=== PATIENT | female | born 1930 | race Caucasian/White ===

== ENCOUNTER 2017-05-28 18:20 | Inpatient (IN) | payer MEDICARE, OTHER ==
[2017-05-28] MEDS ORDERED: NORMAL SALINE 1000 ML 1,000 ML IV ONE (18:28)
--- NOTE | 2017-05-28 18:30 | ER Document Report ---
ED Medical Screen (RME) - General Chief Complaint: Weakness Stated Complaint: WEAKNESS Time Seen by Provider: 05/28/17 18:28 Notes: Patient presents with approximately 3 days of cough and congestion and weakness. She is brought in today by son due to progressive weakness. She did see her primary care physician several days ago who diagnosed her with a upper respiratory infection and started the patient on Keflex and cough medicine. However she has continued to become weaker and the cough has progressed. She does denies shortness of breath. No previous history of congestive heart failure. TRAVEL OUTSIDE OF THE [place] IN LAST 30 DAYS: No - Related Data Allergies/Adverse Reactions: No Known Allergies Allergy (Verified 05/28/17 18:21) Past Medical History - Past Medical History Cardiac Medical History: Denies: Hx Heart Attack, Hx Hypertension Pulmonary Medical History: Denies: Hx Asthma Neurological Medical History: Reports: Hx Cerebrovascular Accident - 2000. Denies: Hx Seizures Renal/ Medical History: Denies: Hx Peritoneal Dialysis GI Medical History: Denies: Hx Hepatitis, Hx Hiatal Hernia, Hx Ulcer Infectious Medical History: Denies: Hx Hepatitis Past Surgical History: Denies: Hx Mastectomy, Hx Open Heart Surgery, Hx Pacemaker
--- NOTE | 2017-05-28 19:18 | ER Document Report ---
ED General - General Chief Complaint: Weakness Stated Complaint: WEAKNESS Time Seen by Provider: 05/28/17 18:28 Notes: Patient is an 87 year old female that comes to the ED for chief complaint of cough, congestion, weakness, and shortness of breath, worsening for about 3 days. She was so weak before arrival she was carried by her son to the car. She did manage to see her provider this AM, Dr. Amador, and was given Keflex and a cough medication. Patient denies chest pain, abdominal pain, vomiting, diarrhea , or noted fever. PMH of CVA with no deficits, RA on methotrexate, and back surgery. No recent hospital admissions. TRAVEL OUTSIDE OF THE [place] IN LAST 30 DAYS: No - Related Data Allergies/Adverse Reactions: No Known Allergies Allergy (Verified 05/28/17 18:21) Past Medical History - General Information source: Patient - Social History Smoking Status: Never Smoker Frequency of alcohol use: None Drug Abuse: None Lives with: Family Family History: Reviewed & Not Pertinent Patient has suicidal ideation: No Patient has homicidal ideation: No - Past Medical History Cardiac Medical History: Denies: Hx Heart Attack, Hx Hypertension Pulmonary Medical History: Denies: Hx Asthma Neurological Medical History: Reports: Hx Cerebrovascular Accident - 2000. Denies: Hx Seizures Renal/ Medical History: Denies: Hx Peritoneal Dialysis GI Medical History: Denies: Hx Hepatitis, Hx Hiatal Hernia, Hx Ulcer Musculoskeltal Medical History: Reports Other - Rheumatoid arthritis Infectious Medical History: Denies: Hx Hepatitis Past Surgical History: Denies: Hx Mastectomy, Hx Open Heart Surgery, Hx Pacemaker - Immunizations Hx Diphtheria, Pertussis, Tetanus Vaccination: Yes Review of Systems - Review of Systems Constitutional: See HPI EENT: See HPI Cardiovascular: No symptoms reported Respiratory: See HPI Gastrointestinal: No symptoms reported Genitourinary: No symptoms reported Female Genitourinary: No symptoms reported Musculoskeletal: No symptoms reported Skin: No symptoms reported Hematologic/Lymphatic: No symptoms reported Neurological/Psychological: No symptoms reported Physical Exam - Vital signs Vitals: Temp Pulse Resp BP Pulse Ox 99.6 F 103 H 28 H 157/49 H 94 05/28/17 18:34 05/28/17 18:34 05/28/17 18:34 05/28/17 18:34 05/28/17 18:34 Interpretation: Normal - General General appearance: Alert, Other - Mild tachypnea, otherwise she is well- appearing In distress: None - HEENT Head: Normocephalic, Atraumatic Eyes: Normal Pupils: PERRL - Respiratory Respiratory status: Tachypnea - very mild. No: Respiratory distress, Labored Chest status: Nontender Breath sounds: Other - There are some rales and rhonchi in the lower lung gill worse on the left, good breath movements otherwise Chest palpation: Normal - Cardiovascular Rhythm: Regular Heart sounds: Normal auscultation Murmur: Yes - / heard thoughout - Abdominal Inspection: Normal Distension: No distension Bowel sounds: Normal Tenderness: Nontender. No: Tender, Guarding Organomegaly: No organomegaly - Back Back: Normal, Nontender - Extremities General upper extremity: Normal inspection, Nontender, Normal color, Normal ROM , Normal temperature General lower extremity: Normal inspection, Nontender, Normal color, Normal ROM , Normal temperature, Normal weight bearing. No: Edema - Neurological Neuro grossly intact: Yes Cognition: Normal Orientation: AAOx4 [place] Coma Scale Eye Opening: Spontaneous [place] Coma Scale Verbal: Oriented [place] Coma Scale Motor: Obeys Commands [place] Coma Scale Total: 15 Speech: Normal Motor strength normal: LUE, RUE, LLE, RLE Sensory: Normal - Psychological Associated symptoms: Normal affect, Normal mood - Skin Skin Temperature: Warm Skin Moisture: Dry Skin Color: Normal Course - Re-evaluation Re-evalutation: 05/28/17 On my exam patient has borderline tachycardia, mild tachypnea, oxygen saturation of 94% on room air. Some rales/rhonchi in the lower lobes worse on the left. She was placed on oxygen, oxygen saturation increased to 100%, tachypnea resolved. Patient with no complaints on my exam. She is afebrile. She is not hypotensive. Lactic acid is normal. Blood gas does not show acidosis. CBC shows mild leukocytosis at 12.2 with elevation of neutrophils but no bandemia. Chemistries unremarkable. Urine still pending. Chest x-ray consistent with left lower lobe infiltrate which is consistent with examination. Starting on Levaquin, no recent hospital admission. Concern because of patient's weakness, improvement on oxygen, and immunocompromise state on methotrexate. Discussed with Dr. Cummins. Will discuss with Dr. Barton for admission. Discussed with Dr. Barton, patient will be admitted to telemetry for admission. Patient states agreement with this plan. - Vital Signs Vital signs: Temp Pulse Resp BP Pulse Ox 99.6 F 103 H 25 H 143/60 H 100 05/28/17 18:34 05/28/17 18:34 05/28/17 20:30 05/28/17 20:30 05/28/17 20:30 - Laboratory Result Diagrams: 05/28/17 19:15 05/28/17 19:15 Laboratory results interpreted by me: 05/28/17 05/28/17 05/28/17 19:15 19:15 20:22 WBC 12.0 H RBC 3.21 L Hgb 10.8 L Hct 31.9 L MCV 100 H MCH 33.6 H RDW 14.3 H Seg Neutrophils % 85.1 H Lymphocytes % 7.0 L Absolute Neutrophils 10.2 H VBG pH 7.46 H Sodium 133.4 L Chloride 94 L Glucose 125 H AST 39 H Discharge - Discharge Clinical Impression: Cough, Weakness Pneumonia Qualifiers: Pneumonia type: due to unspecified organism Laterality: left Lung location: lower lobe of lung Qualified Code(s): J18.1 - Lobar pneumonia, unspecified organism Condition: Stable Disposition: ADMITTED INPATIENT Admitting Provider: Hospitalist Unit Admitted: Telemetry Referrals: JOSE AMADOR MD [Primary Care Provider] - Follow up as needed
--- NOTE | 2017-05-28 19:34 | RADIOLOGY REPORT (SQ) ---
EXAM DESCRIPTION: CHEST SINGLE VIEW COMPLETED DATE/TIME: 05/28/2017 7:25 pm REASON FOR STUDY: cough/congested COMPARISON: None. EXAM PARAMETERS: NUMBER OF VIEWS: One view. TECHNIQUE: Single frontal radiographic view of the chest acquired. RADIATION DOSE: NA LIMITATIONS: None. FINDINGS: LUNGS AND PLEURA: Patchy airspace densities are identified in the left lung base most cons istent with a patchy pneumonic infiltrate. Remaining lung gill are clear. No pleural effusions ar e identified. No pneumothorax is seen. MEDIASTINUM AND HILAR STRUCTURES: No masses. Contour normal. HEART AND VASCULAR STRUCTURES: Heart normal in size. Normal vasculature. BONES: No acute findings. HARDWARE: None in the chest. OTHER: Orthopedic hardware is identified in the lower thoracic and upper lumbar spine IMPRESSION: Patchy pneumonic infiltrate in the left lung base. TECHNICAL DOCUMENTATION: JOB ID: [id number]
[2017-05-28] MEDS ORDERED: LEVOFLOXACIN 750 MG/D5W RTU 150 ML IV ONE (19:35)
[2017-05-28 19:41] LABS: ABSOLUTE LYMPHOCYTES (AUTO) 0.8 10^3/uL (0.5-4.7); ABSOLUTE MONOCYTES (AUTO) 0.9 10^3/uL (0.1-1.4); ABSOLUTE NEUT (AUTO) 10.2 10^3/uL (1.7-8.2); BASOPHILS % (AUTO) 0.3 % (0-2); EOSINOPHILS % (AUTO) 0.1 % (0-6); HEMATOCRIT 31.9 % (36.0-47.0); HEMOGLOBIN 10.8 g/dL (12.0-15.5); HGB HCT DIFFERENCE 0.5; MEAN CORPUSCULAR HEMOGLOBIN 33.6 pg (27.0-33.4); MEAN CORPUSCULAR HGB CONC 33.7 g/dL (32.0-36.0); MEAN CORPUSCULAR VOLUME 100 fl (80-97); MONOCYTES % (AUTO) 7.5 % (3-13); RED BLOOD COUNT 3.21 10^6/uL (3.72-5.28); RED CELL DISTRIBUTION WIDTH 14.3 % (11.5-14.0); SEGMENTED NEUTROPHILS % (AUTO) 85.1 % (42-78)
[2017-05-28 19:46] LABS: PROTHROMBIN TIME 14.2 SEC (11.4-15.4)
[2017-05-28 19:58] LABS: ALANINE AMINOTRANSFERASE 28 U/L (9-52); ALBUMIN 4.3 g/dL (3.5-5.0); ALKALINE PHOSPHATASE 82 U/L (38-126); ANION GAP 14 (5-19); ASPARTATE AMINO TRANSFERASE 39 U/L (14-36); BILIRUBIN,DIRECT 0.4 mg/dL (0.0-0.4); BILIRUBIN,TOTAL 1.1 mg/dL (0.2-1.3); BLOOD UREA NITROGEN 19 mg/dL (7-20); CARBON DIOXIDE 25 mmol/L (22-30); CHLORIDE 94 mmol/L (98-107); CREATININE RESULT 0.84 mg/dL (0.52-1.25); GLUCOSE 125 mg/dL (75-110); POTASSIUM 3.8 mmol/L (3.6-5.0); SODIUM 133.4 mmol/L (137-145); TOTAL PROTEIN 8.2 g/dL (6.3-8.2)
[2017-05-28 20:36] LABS: VENOUS BLOOD BASE EXCESS 5.3 mmol/L; VENOUS BLOOD HCO3 29.6 mmol/L (20-32); VENOUS BLOOD PCO2 42.2 mmHg (35-63); VENOUS BLOOD PH 7.46 (7.30-7.42)
[2017-05-28 21:51] LABS: APPEARANCE,URINE SLIGHTLY-CLOUDY; BILIRUBIN,URINE NEGATIVE (NEGATIVE); GLUCOSE, URINE NEGATIVE (NEGATIVE); KETONES,URINE NEGATIVE (NEGATIVE); LEUKOCYTE ESTERASE,URINE LARGE (NEGATIVE); NITRITE,URINE NEGATIVE (NEGATIVE); PROTEIN,URINE 100 mg/dL (NEGATIVE); URINE SPECIFIC GRAVITY 1.017
[2017-05-28] MEDS ORDERED: DEXTROSE 40% GEL 15 GM TUBE PO PRN ×2 (21:51)
[2017-05-28] MEDS ORDERED: GLUCAGON,HUMAN RECOMB 1 MG INJ SUBCUT PRN (21:51)
[2017-05-28] MEDS ORDERED: DEXTROSE 50%-WATER 25 GM/50 ML DISP.SYRIN IV PRN ×2 (21:51)
[2017-05-28 22:09] LABS: ADD ON TESTING BLD IN LAB ACKNOWLEDGE
[2017-05-28] MEDS ORDERED: VANCOMYCIN HCL 0 MG in DEXTROSE 5%-WATER 250 ML IV NR (22:15)
[2017-05-28] MEDS ORDERED: PHARMACY COMMUNICATION ORDER MC SCH (22:15)
[2017-05-28] MEDS ORDERED: IPRATROPIUM/ALBUTEROL 0.5-2.5 MG/3 ML AMPUL NEB PRN (22:16)
[2017-05-28] MEDS ORDERED: NORMAL SALINE 1000 ML 1,000 ML IV PRN (22:18)
[2017-05-28] MEDS ORDERED: ACETAMINOPHEN 650 MG SUPP.RECT PR PRN (22:22)
[2017-05-28] MEDS ORDERED: PROMETHAZINE HCL 25 MG SUPP.RECT PR PRN (22:22)
[2017-05-28] MEDS ORDERED: AMPICILLIN SOD/SULBACTAM 3 GM VIAL IV PRN ×2 (22:23→22:30)
[2017-05-28] MEDS ORDERED: AMPICILLIN SODIUM/SULBACTAM NA 3 GM in NORMAL SALINE 100 ML IV ONE (22:30)
--- NOTE | 2017-05-28 22:35 | RADIOLOGY REPORT (SQ) ---
EXAM DESCRIPTION: CT HEAD WITHOUT COMPLETED DATE/TIME: 05/28/2017 10:22 pm REASON FOR STUDY: Hx CVA; right hemiparesis COMPARISON: None. TECHNIQUE: Axial images acquired through the brain without intravenous contrast. Images reviewed wi th bone, brain and subdural windows. Images stored on PACS. All CT scanners at this facility use dose modulation, iterative reconstruction, and/or weight based d osing when appropriate to reduce radiation dose to as low as reasonably achievable (ALARA). [facility]: Dose Right [facility]: CareDose [facility]: Dose Right [facility]: Teradose 4D [facility]: Smart [place] RADIATION DOSE: Up-to-date CT equipment and radiation dose reduction techniques were employed. CTDIv ol: 55.3 mGy. DLP: 996 mGy-cm.mGy. LIMITATIONS: None. FINDINGS: VENTRICLES: Prominent. CEREBRUM: No masses. No hemorrhage. No midline shift. Areas of low density in the white matter mos t likely due to chronic micro-vascular ischemic change. Bilateral lacunar infarcts are identified at the level of the periventricular white matter. No evidence for acute infarction. CEREBELLUM: No masses. No hemorrhage. No alteration of density. No evidence for acute infarction. EXTRAAXIAL SPACES: Age-related involutional change. No fluid collections. No masses. ORBITS AND GLOBE: No intra- or extraconal masses. Normal contour of globe without masses. CALVARIUM: No fracture. PARANASAL SINUSES: Mucosal thickening is identified in the sphenoid sinuses and several of the ethmoi jerrell air cells bilaterally. SOFT TISSUES: No mass or hematoma. OTHER: No other significant finding. IMPRESSION: CHRONIC CHANGES OF ATROPHY AND MICROVASCULAR ISCHEMIA. Old lacunar infarcts at the leve l of the periventricular white matter bilaterally. Sinus disease as noted above. Other findings as noted above TECHNICAL DOCUMENTATION: JOB ID: [id number] Quality ID # [id number]: Final reports with documentation of one or more dose reduction techniques (e.g., Au tomated exposure control, adjustment of the mA and/or kV according to patient size, use of iterative reconstruction technique) 2010 [employer]- All Rights Reserved
--- NOTE | 2017-05-28 22:59 | PDOC H&P ---
History of Present Illness Admission Date/PCP: 05/28/17 22:17 JOSE AMADOR MD Rheumatology Dr. Perez, [place] Patient complains of: Congested cough History of Present Illness: JACINTO WORLEY is a 87 year old female with underlying hypertension, long-term methotrexate dependent rheumatoid arthritis, status post prior stroke in the early which has left her with chronic dysphagia, and chronic right hemiparesis, mild anxiety and depression, without suicidal or homicidal ideation , and with no known underlying chronic pulmonary disease, who presents to the emergency room for evaluation of approximately a 3 day history of slowly progressive congested cough, weakness, and shortness of breath, in particular with much of any exertion. Patient has been discussed with emergency room nurse practitioner who evaluated the patient. History also is provided by son, who is present patient side, with her approval. While patient does speak somewhat slowly, she does seem to provide reasonably accurate information, as corroborated by son. Son went by to see his mother today and found her somewhat confused and weak, to the point that he actually picked her up and carried her to the car. Thought she may have had another stroke. However, once he placed her in the car , patient was more alert and less confused. Patient was observed to choke and sputter, so to speak, while attempting to eat applesauce in the emergency room. Was made n.p.o. at that time. no nausea vomiting, fever or chills, diarrhea or dysuria. No chest or abdominal pain. Son states that since her stroke, along with the right-sided weakness, she has had a "lot" of swallowing problems, in particular over the last year. Patient herself seems to downplay this, and also denies any episodes of "strangling" with her food. She eats and swallows very slowly; son agrees with this. No specific "choking" on her food. According to son, was actually admitted to our facility within the last week or so for pneumonia, and just came home the other day. Dictation via voice recognition software. Laboratory results are listed in [employer] and are reviewed. X-ray summary results are listed below, with full report(s) reviewed. . EKG reviewed. No old EKG available for comparison. Social history/personal habits: . Lives with . Retired. 3 sons. No tobacco use for 34 years. No alcohol or illicit drug use. No known drug allergies. Home medications initially autopopulated into [employer] may not accurately reflect patient's true medications, dosages, and/or frequencies. 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 REVIEW OF SYSTEMS: Constitutional: No fever or chills. Eyes: Wears glasses. ENT: See history and present illness. Partial hearing loss. Pulmonary: See history and present illness. Cardiovascular: No current complaints, including chest pain. Gastrointestinal: No current complaints, including nausea or vomiting. Skin: No current complaints, including rashes. Hematologic: Easy bruising. Neurologic: See history and present illness. Musculoskeletal: See history and present illness. Psychiatric: Mild occasional anxiety and depression. Endocrine: No current complaints, including polyuria. Genitourinary: No current complaints, including dysuria. PHYSICAL EXAMINATION: 5 feet 6 inches tall. 63 kg. BMI 22.4 kg/m. Blood pressure 151/66. 94% saturation on 2 L oxygen per nasal cannula. Respirations are 21 and unlabored. Temperature 99.6. Thin otherwise well-developed elderly female, somewhat frail in appearance. Pleasant awake alert and cooperative. Appears perhaps slightly fatigued. Mildly anxious, without agitation. Smiling. Skin is warm and dry. No grossly obvious evidence of rash in areas of skin examined. No subcutaneous nodules palpated. ENT: Mildly hard of hearing to normal conversation. Tongue midline on protrusion pink and slightly tacky. Eyes: No scleral icterus. Pupils equal and reactive to light at 4 mm. Dolores conjunctivae. Neck is supple and nontender to gentle active range of motion and palpation. Midline trachea. No palpable thyroid nodule mass enlargement or tenderness. Lymphatic: No palpable cervical or clavicular nodes. Neck and lymphatic exams limited by patient body habitus. Psychiatric: Reasonable insight into acute and chronic medical issues. Oriented to time location and why here. Lungs: Auscultation reveals equal breath sounds bilaterally. No use of accessory respiratory muscles. Slightly coarse breath sounds, left base; breath sounds are clear otherwise. Cardiovascular: Heart regular rate and rhythm, without gallop murmur or rub. No carotid or abdominal aortic bruits. There is mild bilateral symmetric slightly pitting lower calf, ankle and pedal edema. Faintly palpable dorsalis pedis pulses. Abdomen:soft slightly distended nontender with positive bowel sounds. Unable to adequately evaluate abdomen for masses or organomegaly due to distention. Extremities: Hands and feet are warm and dry. No calf tenderness to compression. No grossly obvious visual evidence of calf swelling. Gentle manipulation of upper and lower extremities fails to reveal any obvious evidence of injury or instability to involved major joints. Has chronic changes in her hands and fingers typically seen in someone with severe arthritis. Neurologic: Cranial Nerves II through XII are grossly intact. Light touch intact at face, upper and lower extremities. Motor function of major muscle groups upper and lower extremities 5 over 5 and symmetric. Patellar reflexes absent. Absent Babinski. No nystagmus. Speaks somewhat slowly. Past Medical History Cardiac Medical History: Reports: Hypertension Denies: Atrial Fibrillation, Congestive Heart Failure, DVT, Myocardial Infarction, Hyperlipidema, Pulmonary Embolism Pulmonary Medical History: Denies: Asthma, Chronic Obstructive Pulmonary Disease (COPD), Sleep Apnea EENT Medical History: Reports: Eyes - Glasses, Ears - Partial hearing loss, Other - Chronic dysphasia since stroke in early 1999 Neurological Medical History: Reports: Ischemic CVA, Other - Chronic mild right hemiparesthesias since stroke Denies: Hemorrhagic CVA, Seizures Endocrine Medical History: Denies: Diabetes Mellitus Type 1, Diabetes Mellitus Type 2, Hyperthyroidism, Hypothyroidism Renal/ Medical History: Reports: None GI Medical History: Denies: Cirrhosis, Gastroesophageal Reflux Disease, Hepatitis, Hiatal Hernia , Peptic Ulcer Disease Musculoskeltal Medical History: Reports: Arthritis - Rheumatoid; long-term methotrexate dependency Skin Medical History: Reports: None Psychiatric Medical History: Reports: Depression, General Anxiety Disorder Denies: Alcohol Dependency, Substance Abuse, Tobacco Dependency Hematology: Reports: Other - Easy bruising Infectious Medical History: Denies: Clostridium Difficile, Hepatitis B, Hepatitis C, Methicillin- Resistant Staph Aureus Past Surgical History Past Surgical History: Reports: Orthopedic Surgery - Foot surgery Social History Information Source: Patient, Relative - Son, Emergency Med Personnel, [facility] Records Lives with: Spouse/Significant other Smoking Status: Former Smoker Frequency of Alcohol Use: None Drugs: None - Advance Directive Resuscitation Status: Full Code Surrogate healthcare decision maker:: Family History Family History: Reviewed & Not Pertinent Parental Family History Reviewed: Yes - Parents of myocardial infarctions. Children Family History Reviewed: Yes - Uncertain health status of children. Sibling(s) Family History Reviewed.: Yes - Surviving sibling with "multiple" health problems Medication/Allergy Home Medications: Folic Acid [Folvite 1 mg Tablet] 1 mg PO DAILY 05/28/17 Methotrexate Sodium [Methotrexate] 20 mg PO TU@1000 05/28/17 Paroxetine HCl [Paxil 20 mg Tablet] 20 mg PO DAILY 05/28/17 Triamterene/Hydrochlorothiazid [Maxzide 75 mg-50 mg Tablet] 0.5 tab PO DAILY Allergies/Adverse Reactions: No Known Allergies Allergy (Verified 05/28/17 18:21) Physical Exam Vital Signs: Temp Pulse Resp BP Pulse Ox 99.6 F 103 H 27 H 135/58 H 100 05/28/17 18:34 05/28/17 18:34 05/28/17 22:01 05/28/17 22:01 05/28/17 22:01 Results Impressions: Head CT 05/28/17 00:00 IMPRESSION: CHRONIC CHANGES OF ATROPHY AND MICROVASCULAR ISCHEMIA. Old lacunar infarcts at the level of the periventricular white matter bilaterally. Sinus disease as noted above. Other findings as noted above Chest X-Ray 05/28/17 18:29 IMPRESSION: Patchy pneumonic infiltrate in the left lung base. Assessment & Plan - Diagnosis (1) Anemia Qualifiers: Anemia type: unspecified type Qualified Code(s): D64.9 - Anemia, unspecified Is this a current diagnosis for this admission?: YesPlan: Follow-up CBC with differential. No need for transfusion at present time. Stool for occult blood. (3) LLL pneumonia Qualifiers: Pneumonia type: aspiration pneumonia Aspiration pneumonia type: unspecified Qualified Code(s): J69.0 - Pneumonitis due to inhalation of food and vomit Is this a current diagnosis for this admission?: YesPlan: Suspected aspiration pneumonia. Patient will be admitted under pneumonia protocol. Incentive spirometry twice a day. As needed DuoNeb's. Antibiotics will consist of Unasyn and vancomycin, given both suspected aspiration, and patient's immunosuppressed state due to chronic methotrexate use. Pharmacy to assist with dosing.. Patient is a full code. I have strongly encouraged patient not to get out of bed without notifying staff , to avoid a fall with injury. Knee high SCDs for DVT prophylaxis, along with subcutaneous Lovenox. Impression and plans were discussed with patient and son, both of whom concur. Son understands confusion may worsen while she is in the hospital. Time spent in evaluation and management of patient: 75 minutes. (4) UTI (urinary tract infection) Qualifiers: Urinary tract infection type: site unspecified Is this a current diagnosis for this admission?: YesPlan: Blood and urine cultures. (5) Dysphagia as late effect of cerebrovascular accident (CVA) Is this a current diagnosis for this admission?: YesPlan: N.p.o. Speech therapy consult. Patient and son both aware. (6) Methotrexate, equipment operator intermodal yard, current use Is this a current diagnosis for this admission?: YesPlan: We will obviously hold, given her underlying infections. (7) Aspiration into airway Qualifiers: Encounter type: initial encounter Qualified Code(s): T17.908A - Unspecified foreign body in respiratory tract, part unspecified causing other injury, initial encounter Is this a current diagnosis for this admission?: Yes (8) Rheumatoid arthritis Qualifiers: Rheumatoid arthritis location: unspecified site Rheumatoid factor presence: unspecified presence Qualified Code(s): M06.9 - Rheumatoid arthritis, unspecified Is this a current diagnosis for this admission?: YesPlan: As needed pain medications. - Time Time Spent: Greater than 70 Minutes Medications reviewed and adjusted accordingly: Yes Anticipated discharge: Home Within: Other - Inpatient Certification Based on my medical assessment, after consideration of the patient's comorbidities, presenting symptoms, or acuity I expect that the services needed warrant INPATIENT care.: Yes I certify that my determination is in accordance with my understanding of Medicare's requirements for reasonable and necessary INPATIENT services [42 CFR 412.3e].: Yes Medical Necessity: Significant Comorbidiites Make Outpatient Treatment Too Risky , Need Close Monitoring Due to Risk of Patient Decompensation, Need For IV Fluids, Need for IV Antibiotics, Risk of Complication if Not Cared For in Hospital Post Hospital Care: D/C or Transfer Summary
[2017-05-28] MEDS ORDERED: VANCOMYCIN HCL INJ 1000 MG VIAL IV PRN (23:30)
[2017-05-28] MEDS ORDERED: VANCOMYCIN HCL 1,000 MG in DEXTROSE 5%-WATER 250 ML IV ONE (23:30)
[2017-05-29] MEDS ORDERED: VANCOMYCIN HCL INJ 1000 MG VIAL ONE (00:51)
[2017-05-29] MEDS ORDERED: AMPICILLIN SODIUM/SULBACTAM NA 3 GM in NORMAL SALINE 100 ML IV SCH (03:00)
[2017-05-29] MEDS: AMPICILLIN SODIUM/SULBACTAM NA 3 GM in NORMAL SALINE 100 ML IV SCH ×3 (05:03→19:27)
[2017-05-29 05:46] LABS: ABSOLUTE LYMPHOCYTES (AUTO) 0.8 10^3/uL (0.5-4.7); ABSOLUTE MONOCYTES (AUTO) 0.9 10^3/uL (0.1-1.4); ABSOLUTE NEUT (AUTO) 8.6 10^3/uL (1.7-8.2); BASOPHILS % (AUTO) 0.3 % (0-2); EOSINOPHILS % (AUTO) 0.1 % (0-6); HEMOGLOBIN 9.7 g/dL (12.0-15.5); HGB HCT DIFFERENCE 1.1; MEAN CORPUSCULAR HEMOGLOBIN 34.5 pg (27.0-33.4); MEAN CORPUSCULAR HGB CONC 34.7 g/dL (32.0-36.0); MEAN CORPUSCULAR VOLUME 99 fl (80-97); MONOCYTES % (AUTO) 8.6 % (3-13); RED BLOOD COUNT 2.81 10^6/uL (3.72-5.28); RED CELL DISTRIBUTION WIDTH 14.5 % (11.5-14.0); WHITE BLOOD COUNT 10.3 10^3/uL (4.0-10.5)
[2017-05-29] MEDS ORDERED: AMPICILLIN SOD/SULBACTAM 3 GM VIAL IV PRN (06:00)
[2017-05-29 06:14] LABS: ALANINE AMINOTRANSFERASE 26 U/L (9-52); ALBUMIN 3.2 g/dL (3.5-5.0); ALKALINE PHOSPHATASE 64 U/L (38-126); ANION GAP 9 (5-19); ASPARTATE AMINO TRANSFERASE 29 U/L (14-36); BILIRUBIN,DIRECT 0.4 mg/dL (0.0-0.4); BILIRUBIN,TOTAL 1.2 mg/dL (0.2-1.3); BLOOD UREA NITROGEN 12 mg/dL (7-20); CALCIUM 7.9 mg/dL (8.4-10.2); CARBON DIOXIDE 25 mmol/L (22-30); CHLORIDE 101 mmol/L (98-107); CREATININE RESULT 0.65 mg/dL (0.52-1.25); GLUCOSE 112 mg/dL (75-110); POTASSIUM 3.6 mmol/L (3.6-5.0); SODIUM 135.1 mmol/L (137-145); TOTAL PROTEIN 6.5 g/dL (6.3-8.2)
--- NOTE | 2017-05-29 09:54 | ST Inp Modified Barium Swallow ---
Medical Diagnosis - Medical Diagnoses Medical Diagnosis Description & ICD-10 Code(s): pneumonia ST Inpatient [facility] [place] - General Date: 05/29/17 - History History Obtained From: Other - EMR -: Medical - Patient with history of prior CVA with chronic swallowing difficulties. Currently exhibiting some possible worsening swallowing per family report. PMH: HTN, prior CVA with right sided weakness, arthritis, anxiety , depression Medications: Medications Reviewed Allergies: No known allergies - Subjective Current Nutritional Means: NPO Current PO Diet: N/A (NPO) Current Symptoms: Coughing, other - history of dysphagia Pain: Patient reports, 0/5 - Objective Assessment: Upright, Left Lateral - Food Trials Food Trials Used: Thin liquids, Pureed, Soft solids The Patient: fed by ST, via cup, via spoon - Assessment Labial Function: Within Normal Limits Lingual Function: Within Normal Limits Dentition: Partial Velo-Pharyngeal Function: Unremarkable Laryngeal Function: Weak Cough - Pharyngeal Stage Initiation of Pharyngeal Stage: Delayed Reflex Delay Time (seconds): 2 Decreased Laryngeal Elevation: No Reduced Velo-Pharyngeal Closure: no Reduced Pressure Generation: Yes Reduced Tongue Base Retraction: No Pre-Swallowing Pooling in Valleculae: Moderate - with pureed texture Multiple Swallows With: Cleared w/ Liquid Assist Post Swallow Residuals in Valleculae: Mild Post Swallow Residuals in Pyriforms: Moderate Post Swallow Residuals: throughout pharynx Pahryngeal Stage Comments: Pharyngeal residue noted on puree texture, with mild residue for liquid trials. Residue able to clear with liquid wash, or with multiple swallows. - Impression/Summary Laryngeal Penetration: Yes, Flash, during swallow Tracheal Aspiration: no Effective Compensatory Strategies: hard swallow Ineffective Compensatory Strategies: throat clear & reswallow Patient Presents With: Oral-Pharyngeal dysph., Mild-Moderate Risk of Aspiration: Mild Risk of Nutritional Compromise: Mild Risk Due To: reduced pharyngeal constriction for swallow, resulting in residue post swallow. Able to clear with second swallow or sip of liquid. Tongue pumping seen with swallow on command from therapist. - Recommendations Solid Diet Recommendations: Ground Meat Liquid Diet Recommendations: Thin Strict Aspitarion Precautions: Yes Dysphagia Therapy with FLAT BREAKDOWN PROCESSOR: No - due to chronic nature of swallowing difficulties Recommended Techniques: Fully Upright During Meal, Small Bites and Sips, Alternate Bites/Sips Supervision: requires assistance - Time Total Time: 20 Total Timed Minutes: 20
--- NOTE | 2017-05-29 10:57 | RADIOLOGY REPORT (SQ) ---
EXAM DESCRIPTION: JOHNIE SWALLOW COMPLETED DATE/TIME: 05/29/2017 8:51 am REASON FOR STUDY: suspect aspiration COMPARISON: None. TECHNIQUE: Videofluoroscopic swallowing examination was performed in conjunction with speech patholo gy. Videofluoroscopic imaging was obtained and reviewed and these are the findings: RADIATION DOSE: Fluoro time 2.42 minutes 1 images saved to PACS. LIMITATIONS: None FINDINGS: The patient was brought into the fluoro room and placed upright on a modified barium swall ow chair. The patient was then given multiple consistencies mixed with barium to swallow under live fluoroscopic video guidance. According to the Speech Pathologist there was a single episode of laryn geal penetration without aspiration seen with thin barium. Pureed and mixed consistencies were swall owed without incident IMPRESSION: SINGLE EPISODE OF LARYNGEAL PENETRATION WITH THIN BARIUM. NO ASPIRATION IDENTIFIED.PLEA SE SEE SPEECH PATHOLOGIST REPORT FOR OTHER FINDINGS AND RECOMMENDATIONS. COMMENT: NONE Quality ID [id number]: Final reports for procedures using fluoroscopy that document radiation exposure myesha shelley, or exposure time and number of fluorographic images (if radiation exposure indices are not avail able) TECHNICAL DOCUMENTATION: JOB ID: [id number] [employer]- All Rights Reserved
[2017-05-29] MEDS: ENOXAPARIN SODIUM INJ 40 MG/0.4 ML DISP.SYRIN SUBCUT SCH (14:37)
--- NOTE | 2017-05-29 15:37 | Physician Advisory Note ---
Physician Advisor ProgressNote .: Pursuant to the plan for [facility], I have reviewed the medical record for this patient. 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 Please consider documentin. Principal Dx: please list principal dx requiring adm as Dx #1 in each note. 2. "Acute hyponatemia, suspect due to ___" Thanks! CK
--- NOTE | 2017-05-29 15:49 | PROGRESS NOTE E ---
Progress Note NAME: JACINTO WORLEY : 1930 AGE: 87Y DATE: ROOM: 403 SUBJECTIVE: The patient was seen twice today on rounds. The patient's symptoms apparently have improved in comparison to yesterday. The patient herself has some dementia. She is unable to articulate the specifics of things, but states that she is feeling better. The patient has denied any nausea, vomiting, diarrhea. No shortness of breath, dizziness, chest pain. No fever or chills. The patient has been afebrile since midnight. Blood pressures have been in a good range. The patient does not voice any other concerns at this time. Discussed the case with both the patient's and her son with the patient. The patient has elected for a natural , stating that she does not want to be put on machines. This was discussed with the family who are in agreement with this plan. The patient did have a swallow evaluation today. I have discussed the details and findings of this and they are aware the patient may have issues with recurrent aspiration, but do favor quality of life. No other concerns are voiced at this time. REVIEW OF SYSTEMS: Rest of review of systems is negative. MEDICATIONS: Reviewed today. OBJECTIVE: GENERAL: The patient is an 87-year-old female who is awake, alert and oriented to person, place, time and situation. She is delayed. Does not appear to be in acute distress. VITAL SIGNS: Are as follows: Temperature is 98.6, pulse 84, respirations 18, blood pressure 120/52, oxygen saturation 97% on 2 L nasal cannula. SKIN: Warm and dry. No rash. Not diaphoretic. HEENT: Pupils equal, round, reactive to light and accommodation. Conjunctiva pink. No JVD. CARDIOVASCULAR SYSTEM: Heart is regular. There is no murmur or rub. CHEST: Rhonchorous breath sounds are noted in the left lung. ABDOMEN: Soft, nontender, and nondistended. BACK: There is no CVA tenderness or sacral edema. EXTREMITIES: No clubbing, cyanosis, edema. PSYCHIATRIC: Appropriate affect. Pleasant mood. DIAGNOSTICS: Lab values are as follows: Hematology obtained on 05/29/2017: WBC is 10.3, hemoglobin is 7.7, hematocrit is 28.0, platelet count is 192,000. Chemistry obtained on 05/29/2017: Sodium is 135, potassium, chloride is 101, carbon dioxide 26, BUN 12, creatinine is 1.65, glucose 112. Calcium is 7.9. Bilirubin 1.2. AST 29, ALT 26. Alkaline phosphatase 64. Total protein 6.5. Albumin 3.2. Urine culture obtained on 05/28/2017 reveals no growth. Sputum culture obtained on 05/29/2017 is pending. IMPRESSION AND PLAN: 1. PNEUMONIA. Most likely aspiration pneumonia. We will continue antibiotic coverage. We will discontinue vancomycin. We will continue dietary recommendations by Speech and follow. 2. HYPERTENSION. Blood pressures have been in a good range. We will continue to hold the patient's blood pressure medications to ensure we have something to work with. 3. ACUTE HYPOXEMIC RESPIRATORY FAILURE SECONDARY TO THE PATIENT'S PNEUMONIA. The patient is no longer tachypneic. Overall much improved. 4. EARLY SEPSIS. The patient's symptoms overall have improved tremendously. We will continue to monitor. 5. DEMENTIA. The patient is currently at her baseline. 6. RHEUMATOID ARTHRITIS. We will continue supportive therapy. DISPOSITION: The patient is a DO NOT RESUSCITATE/DO NOT INTUBATE. Pending patient's symptomatology and diagnostic findings, we will re-evaluate in the a.m. Time spent on this followup including assessment, plan, physical examination, patient education and family meetings 45 minutes. DICTATING PHYSICIAN: RACHEL ELY NP [id number] PHY#: [id number] ID: [id number] JOB#: [id number] ACCT: [id number] cc: > [facility]
--- NOTE | 2017-05-29 16:22 | EKG REPORT ---
SEVERITY:- ABNORMAL ECG - SINUS TACHYCARDIA LEFT ATRIAL ABNORMALITY BORDERLINE T ABNORMALITIES, INFERIOR LEADS : Confirmed by: Anastasia Chew MD 29-May-2017 16:22:12
[2017-05-29] MEDS ORDERED: VANCOMYCIN HCL 1,000 MG in DEXTROSE 5%-WATER 250 ML IV SCH (22:00)
[2017-05-30] MEDS: AMPICILLIN SODIUM/SULBACTAM NA 3 GM in NORMAL SALINE 100 ML IV SCH ×5 (00:26→23:10)
[2017-05-30] MEDS: ENOXAPARIN SODIUM INJ 40 MG/0.4 ML DISP.SYRIN SUBCUT SCH (09:48)
[2017-05-30] MEDS: FOLIC ACID 1 MG TABLET PO SCH (09:48)
[2017-05-30] MEDS: PAROXETINE HCL 20 MG TABLET PO SCH (09:48)
[2017-05-30] MEDS ORDERED: GUAIFENESIN 600 MG TABLET.SA PO ONE (11:00)
--- NOTE | 2017-05-30 11:07 | PROGRESS NOTE E ---
Progress Note NAME: JACINTO WORLEY : 1930 AGE: 87Y DATE: 05/30/2017 ROOM: 403 SUBJECTIVE: The patient is out of bed to the bedside chair. The patient states that she does feel a little better than when she came in. The patient has had a very strong cough, but has been unable to produce any sputum. The patient does express a desire to go home; however, she still is quite dyspneic. The patient has been afebrile. Her blood pressures have been in a good range, and the patient does not voice any other concerns at this time. Will discuss the case with family as requested. REVIEW OF SYSTEMS: Rest of review of systems negative. MEDICATIONS: Medications have been reviewed. OBJECTIVE: GENERAL: The patient is an 87-year-old female who is awake, alert. She is oriented to person, place, time, and situation. She is a little delayed, does not appear to be in any acute distress. VITAL SIGNS: Temperature is 98.7, pulse 82, respirations 17, blood pressure is 130/55, oxygen saturation 98% on 2 L nasal cannula. SKIN: Warm and dry. No rash. She is not diaphoretic. HEENT: Pupils equal, round, and reactive to light and accommodation. Conjunctivae pink. There is no JVP. CARDIOVASCULAR SYSTEM: Heart is regular. There is no murmur or rub. CHEST: The patient does have rhonchorous breath sounds noted in left lung field, but symmetrical, not labored. ABDOMEN: Soft, nontender, nondistended. Bowel sounds are present. No palpable organomegaly. BACK: No CVA tenderness or sacral edema. EXTREMITIES: No clubbing, cyanosis, edema. PSYCHIATRIC: Appropriate affect, pleasant mood. She is demented. DIAGNOSTICS: Lab values are as follows: Hematology obtained on 05/29/2017: WBCs are 10.3, hemoglobin is 9.7, hematocrit is 28.0, platelet count is 192,000. Chemistry obtained on 05/29/2017: Sodium is 135, potassium 3.6, chloride is 101, carbon dioxide 25, BUN 12, creatinine is 0.65, glucose 112, calcium is 7.9, bilirubin is 1.2. AST 29, ALT is 26, Alk phos 64, total protein 6.5, albumin 3.2. IMPRESSION AND PLAN: 1. ASPIRATION PNEUMONIA. The patient has done well with her dietary changes. Discussed this with the family. Do appreciate speech recommendations. White count has improved. Will repeat chest x-ray in the a.m. and follow. Will add Mucinex given the patient is unable to produce sputum. 2. HYPERTENSION. Blood pressure has been in a good range. Will continue her home medications. 3. ACUTE HYPOXEMIC RESPIRATORY FAILURE. This is secondary to pneumonia. The patient is no longer tachypneic, overall improved. 4. EARLY SEPSIS. Overall, the symptoms have improved tremendously. Will continue to monitor. 5. DEMENTIA. The patient is at her current baseline. 6. RHEUMATOID ARTHRITIS. Will continue supportive therapies. DISPOSITION: The patient is a DNR/DNI. Pending patient's symptomatology and diagnostic findings, will re-evaluate in the a.m. for discharge. Time spent on this followup including assessment, plan, physical examination, patient education, and family meeting is 40 minutes. DICTATING PHYSICIAN: RACHEL ELY NP [id number] PHY#: [id number] ID: [id number] JOB#: [id number] ACCT: [id number] cc: >
[2017-05-30] MEDS: GUAIFENESIN 600 MG TABLET.SA PO SCH (21:41)
[2017-05-31] MEDS: AMPICILLIN SODIUM/SULBACTAM NA 3 GM in NORMAL SALINE 100 ML IV SCH ×2 (05:11→15:04)
[2017-05-31 05:22] LABS: HEMATOCRIT 29.4 % (36.0-47.0); HGB HCT DIFFERENCE 0.6; MEAN CORPUSCULAR HEMOGLOBIN 33.9 pg (27.0-33.4); MEAN CORPUSCULAR HGB CONC 33.9 g/dL (32.0-36.0); MEAN CORPUSCULAR VOLUME 100 fl (80-97); RED BLOOD COUNT 2.94 10^6/uL (3.72-5.28); RED CELL DISTRIBUTION WIDTH 14.8 % (11.5-14.0); WHITE BLOOD COUNT 8.8 10^3/uL (4.0-10.5)
[2017-05-31 05:41] LABS: ANION GAP 10 (5-19); BLOOD UREA NITROGEN 8 mg/dL (7-20); CALCIUM 7.9 mg/dL (8.4-10.2); CARBON DIOXIDE 26 mmol/L (22-30); CHLORIDE 100 mmol/L (98-107); CREATININE RESULT 0.46 mg/dL (0.52-1.25); GLUCOSE 110 mg/dL (75-110); MAGNESIUM 1.8 mg/dL (1.6-2.3); POTASSIUM 3.3 mmol/L (3.6-5.0); SODIUM 135.9 mmol/L (137-145)
[2017-05-31] MEDS ORDERED: POTASSIUM CHLORIDE 20 MEQ/15 ML UDCUP PO ONE (08:00)
--- NOTE | 2017-05-31 08:26 | RADIOLOGY REPORT (SQ) ---
EXAM DESCRIPTION: CHEST PA/LAT COMPLETED DATE/TIME: 05/31/2017 7:58 am REASON FOR STUDY: FU PNA COMPARISON: 05/28/2017. EXAM PARAMETERS: NUMBER OF VIEWS: two views TECHNIQUE: Digital Frontal and Lateral radiographic views of the chest acquired. RADIATION DOSE: NA LIMITATIONS: none FINDINGS: LUNGS AND PLEURA: Diffuse interstitial prominence. Faint basilar densities, left greater than right, unchanged. No large pleural effusion. No pneumothorax. MEDIASTINUM AND HILAR STRUCTURES: No masses or contour abnormalities. HEART AND VASCULAR STRUCTURES: Heart normal size. No evidence for failure. BONES: No acute findings. HARDWARE: Hardware in the spine. OTHER: No other significant finding. IMPRESSION: PROBABLE DIFFUSE CHRONIC INTERSTITIAL SCARRING. FAINT BASILAR DENSITIES, LEFT GREATER T PRESSLEY RIGHT, MAY BE DUE TO SCARRING, ATELECTASIS, OR PNEUMONIA. NO CHANGE. TECHNICAL DOCUMENTATION: JOB ID: [id number] [employer]- All Rights Reserved
[2017-05-31] MEDS: FOLIC ACID 1 MG TABLET PO SCH (10:18)
[2017-05-31] MEDS: GUAIFENESIN 600 MG TABLET.SA PO SCH (10:18)
[2017-05-31] MEDS: ENOXAPARIN SODIUM INJ 40 MG/0.4 ML DISP.SYRIN SUBCUT SCH (10:19)
[2017-05-31] MEDS: PAROXETINE HCL 20 MG TABLET PO SCH (10:20)
[2017-05-31 15:45] VITALS: BP 145/64
--- NOTE | 2017-06-01 12:13 | DISCHARGE SUMMARY E ---
Discharge Summary NAME: JACINTO WORLEY : 1930 AGE: 87Y ADMITTED: 05/28/2017 DISCHARGED: 05/31/2017 CODE STATUS: DO NOT RESUSCITATE, DO NOT INTUBATE with PORTABLE DNR. PRIMARY CARE PROVIDER: Dr. Majano DISCHARGE DIAGNOSES: 1. Aspiration pneumonia. 2. Hypertension. 3. Acute hypoxemic respiratory failure secondary to #1. 4. Early sepsis secondary to #1. 5. Vascular dementia. 6. Rheumatoid arthritis. 7. Cerebrovascular disease status post CVA. 8. Hypovolemic hyponatremia which has improved, present on admission. DISCHARGE MEDICATIONS: 1. Augmentin 875/125 one tablet p.o. every 12 hours, #14 tablets with 0 refills. 2. Folic acid 1 mg p.o. daily. 3. Methotrexate 20 mg p.o. on Saturday. 4. Paxil 20 mg p.o. daily. DIET: As tolerated with mechanical soft ground meats, regular liquids. ACTIVITY: As per home health physical therapy standards. DIAGNOSTICS: 1. Laboratory values are as follows: a. Hematology obtained on 05/31/2017: WBC 8.8, hemoglobin 10.0, hematocrit 24.4, platelet count 231,000. b. Coagulation obtained on 05/28/2017: PT 14.2, INR 1.03. c. Venous blood gas obtained on 05/28/2017 with pH 7.46, pCO2 of 42.2, bicarb 29.3. d. Chemistry obtained on 05/29/2017: Sodium 135, potassium 3.6, chloride 101, carbon dioxide 25, BUN 12, creatinine 0.65, glucose 112, lactic acid 1.6, calcium 7.9, magnesium 1.8, bilirubin 1.2, direct bilirubin 0.4, AST 29, ALT 26, alkaline phosphatase 64, total protein 6.5, albumin 3.2. TSH 0.76. e. Urinalysis obtained on 05/29/2017: Color yellow, appearance slightly cloudy, pH 6.0, specific gravity 1.017, protein 100, glucose negative, ketones negative, occult blood negative, nitrite negative, bilirubin negative, urobilinogen 0.0, leukocyte esterase large, WBCs 15, RBCs 2, bacteria trace, epithelial squamous cells 3, mucus rare, ascorbic acid negative. f. Other body source obtained on 05/31/2017: Stool for occult blood negative. g. Microbiology: Blood cultures obtained on 05/29/2017 revealed no growth. 2. Head CT obtained on 05/28/2017 reveals chronic changes of atrophy and microvascular ischemia, old lacunar infarcts at the level of the periventricular white matter bilaterally. 3. Chest x-ray obtained on 05/28/2017 reveals patchy pneumonic infiltrate of the left lung base. 4. Modified barium swallow obtained on 05/29/2017 reveals a single episode of laryngeal penetration with thin barium. No aspiration identified. 5. Chest x-ray obtained on 05/31/2017 reveals probable diffuse chronic interstitial scarring, faint bibasilar densities left greater than right, may be due to scarring, atelectasis, or pneumonia, otherwise no other change. 6. EKG obtained on 05/28/2017 reveals sinus tachycardia with left atrial abnormality. HISTORY OF PRESENT ILLNESS: The patient is an 87-year-old female with a past medical history of rheumatoid arthritis as well as CVA. The patient presented to the emergency department with a chief complaint of a congestive cough. The patient noted a 3-day history of slowly progressive congestive cough, weakness, shortness of breath especially with exertion. The patient was seen earlier that day by the son, who found the patient to be confused and weak to the point that he actually picked her up out of the chair and carried her to the car and thought she may have had possibly another stroke. Once placed in the car, the patient appeared alert and less confused. The patient was observed to choke and sputter while she was attempting to eat applesauce in the emergency department, so it was felt that the patient may actually have aspirated. The patient has stated that since the patient's stroke along with the right-sided weakness, she had a lot of swallowing problems particularly over the past year. The patient was found to have evidence of pneumonia on imaging and was referred to the hospitalist for admission and management. HOSPITAL COURSE: The patient was admitted to continuous telemetry unit. The patient's white count normalized with starting antibiotic therapy. The patient was covered for aspiration pneumonia. The patient underwent modified swallow evaluation and speech therapy felt the patient was a high aspiration risk; however, that the patient did need mechanical meats and was okay for thin liquids for now. The patient just needed close observation and verbal cues with meals. The patient's risk of aspiration was discussed with the patient and the family. They are aware that the patient's aspiration issues are most likely due to her cerebrovascular disease and that she have recurrent bouts of this, which they understand. The patient's symptoms overall much improved. The patient did well with subsequent meals with mechanical meats. The patient had been afebrile for greater than 48 hours which the patient does run a low-grade temperature with her rheumatoid arthritis. The patient's mentation became at baseline. The patient was seen by therapies and home health with PT and speech therapy have been ordered. The patient has been cleared for discharge. PHYSICAL EXAMINATION: GENERAL: On examination, the patient is a frail, chronically ill-appearing 87-year-old female who is awake, alert, she is oriented to person and place, but not fully oriented to situation, a little delayed. VITAL SIGNS: As follows: Temperature 99.2, pulse 87, respirations 16, blood pressure 138/69, oxygen saturation 93% on room air. SKIN: Warm and dry. No rash. Not diaphoretic. HEENT: Pupils are equal, round and reactive to light and accommodation. Conjunctivae are pink. There is no JVD. CARDIOVASCULAR SYSTEM: Heart is regular. There is no murmur or rub. CHEST: Symmetrical and unlabored. Faint rhonchorous sounds noted in left lung field, but improved in comparison. ABDOMEN: Soft, nontender, nondistended. BACK: No CVA tenderness or sacral edema. EXTREMITIES: No clubbing, cyanosis, or edema. Chronic changes of rheumatoid arthritis are noted throughout physical examination. PSYCHIATRIC: Very pleasant. DISCHARGE PLANNIN. The patient will be followed by home health services with multiple therapy supports. 2. The patient is advised to follow up with her primary care provider as needed. TIME SPENT: Time spent on this discharge including assessment, plan, physical examination, patient education and extensive family members was 40 minute. DICTATING PHYSICIAN: RACHEL ELY NP [id number] PHY#: [id number] ID: [id number] JOB#: [id number] ACCT: [id number] cc:LEI DUNN M.D. RACHEL ELY NP >
== END 2017-05-31 16:42 | disposition home health service (06) | DRG 871 ==
LOC: ER 18:20 → UNDOADMIN 20:59 → EH 20:59 → 4N 23:26
PROVIDERS: ADMIT Family Medicine; ATTEND Family Medicine
PROC: 3E0F73Z Introduction of Anti-inflammatory into Respiratory Tract, Via Natural or Artificial Opening (ICD-10-PCS; principal; 2017-05-29)
DX: A41.9 Sepsis, unspecified organism (principal); J69.0 Pneumonitis due to inhalation of food and vomit; J96.01 Acute respiratory failure with hypoxia; I69.851 Hemiplegia and hemiparesis following other cerebrovascular disease affecting right dominant side; E87.1 Hypo-osmolality and hyponatremia; N39.0 Urinary tract infection, site not specified; I10 Essential (primary) hypertension; R65.20 Severe sepsis without septic shock; F01.50 Vascular dementia, unspecified severity, without behavioral disturbance, psychotic disturbance, mood disturbance, and anxiety; M06.9 Rheumatoid arthritis, unspecified; I69.891 Dysphagia following other cerebrovascular disease; R00.0 Tachycardia, unspecified; D64.9 Anemia, unspecified; T17.908A Unspecified foreign body in respiratory tract, part unspecified causing other injury, initial encounter; F41.1 Generalized anxiety disorder; Z79.1 Long term (current) use of non-steroidal anti-inflammatories (NSAID); Z79.899 Other long term (current) drug therapy; Z87.891 Personal history of nicotine dependence; Z66 Do not resuscitate; Z82.49 Family history of ischemic heart disease and other diseases of the circulatory system
CPT/HCPCS: 36415; 70450; 71010; 71020; 74230; 80048; 80053; 81001; 82272; 82803; 82962; 83605; 83735; 84443; 85025; 85027; 85610; 87040; 87070; 87086; 87205; 93005; 93010; 94640; 94667; 94668; 94799; 96365; 99285; G8978-GP; G8979-GP; J0295; J1650; J1956; J3370; J3490; J7030; J7620

== ENCOUNTER → 2018-03-25 | Outpatient (CLI) | payer MEDICARE, OTHER ==
[2018-03-25 16:37] LABS: ABSOLUTE BASOPHILS # (AUTO) 0.1 10^3/uL (0.0-0.2); ABSOLUTE EOSINOPHILS # (AUTO) 0.1 10^3/uL (0.0-0.6); ABSOLUTE LYMPHOCYTES (AUTO) 1.4 10^3/uL (0.5-4.7); ABSOLUTE MONOCYTES (AUTO) 0.7 10^3/uL (0.1-1.4); ABSOLUTE NEUT (AUTO) 3.3 10^3/uL (1.7-8.2); BASOPHILS % (AUTO) 1.3 % (0-2); EOSINOPHILS % (AUTO) 2.5 % (0-6); HEMATOCRIT 28.3 % (36.0-47.0); HEMOGLOBIN 9.2 g/dL (12.0-15.5); LYMPHOCYTES % (AUTO) 25.2 % (13-45); MEAN CORPUSCULAR HEMOGLOBIN 27.1 pg (27.0-33.4); MEAN CORPUSCULAR HGB CONC 32.5 g/dL (32.0-36.0); MEAN CORPUSCULAR VOLUME 83 fl (80-97); MONOCYTES % (AUTO) 12.9 % (3-13); PLATELET COUNT 294 10^3/uL (150-450); RED BLOOD COUNT 3.39 10^6/uL (3.72-5.28); SEGMENTED NEUTROPHILS % (AUTO) 58.1 % (42-78); TOTAL CELLS COUNTED % (AUTO) 100 %; WHITE BLOOD COUNT 5.6 10^3/uL (4.0-10.5)
[2018-03-25 16:56] LABS: ALANINE AMINOTRANSFERASE 34 U/L (9-52); ALBUMIN 3.8 g/dL (3.5-5.0); ALKALINE PHOSPHATASE 107 U/L (38-126); ANION GAP 13 (5-19); ASPARTATE AMINO TRANSFERASE 56 U/L (14-36); BILIRUBIN,DIRECT 0.3 mg/dL (0.0-0.4); BILIRUBIN,TOTAL 0.4 mg/dL (0.2-1.3); BLOOD UREA NITROGEN 14 mg/dL (7-20); CALCIUM 9.1 mg/dL (8.4-10.2); CARBON DIOXIDE 27 mmol/L (22-30); CHLORIDE 103 mmol/L (98-107); GLUCOSE 90 mg/dL (75-110); POTASSIUM 3.6 mmol/L (3.6-5.0); SODIUM 142.6 mmol/L (137-145); TOTAL PROTEIN 7.2 g/dL (6.3-8.2)
== END ==
LOC: OD 15:03
PROVIDERS: ATTEND Family Medicine
DX: M06.9 Rheumatoid arthritis, unspecified (principal); R60.9 Edema, unspecified
CPT/HCPCS: 36415; 80053; 85025

== ENCOUNTER → 2018-07-11 | Outpatient (CLI) | payer MEDICARE ==
--- NOTE | 2018-07-11 13:29 | RADIOLOGY REPORT (SQ) ---
EXAM DESCRIPTION: CHEST PA/LATERAL COMPLETED DATE/TIME: 07/11/2018 1:08 pm REASON FOR STUDY: COUGH,WHEEZING COMPARISON: 05/23/2017. EXAM PARAMETERS: NUMBER OF VIEWS: two views TECHNIQUE: Digital Frontal and Lateral radiographic views of the chest acquired. RADIATION DOSE: NA LIMITATIONS: none FINDINGS: LUNGS AND PLEURA: Chronic interstitial scarring. No focal infiltrates, masses or pneumoth orax. No pleural effusion. MEDIASTINUM AND HILAR STRUCTURES: No masses or contour abnormalities. HEART AND VASCULAR STRUCTURES: Heart normal size. No evidence for failure. BONES: Chronic changes in the spine with old compression deformity in the lower thoracic vertebra. N o acute findings. HARDWARE: Hardware in the thoracolumbar spine. OTHER: No other significant finding. IMPRESSION: STABLE CHRONIC PULMONARY SCARRING. CHRONIC CHANGES IN THE SPINE WITH HARDWARE. NO ACUT E RADIOGRAPHIC FINDING IN THE CHEST. TECHNICAL DOCUMENTATION: JOB ID: [id number] [employer]- All Rights Reserved Reading location - IP/workstation name: [email or web address]
== END ==
LOC: OD 12:13
PROVIDERS: ATTEND Family Medicine Geriatric Medicine
DX: R06.2 Wheezing (principal); R05 Cough; J98.4 Other disorders of lung
CPT/HCPCS: 71046

== ENCOUNTER → 2018-07-25 | Outpatient (CLI) | payer MEDICARE ==
--- NOTE | 2018-07-25 14:48 | RADIOLOGY REPORT (SQ) ---
EXAM DESCRIPTION: CT CHEST WITHOUT COMPLETED DATE/TIME: 07/25/2018 1:15 pm REASON FOR STUDY: WHEEZING R06.2 WHEEZING COMPARISON: Chest x-ray dated 07/11/2018 and 05/31/2017. TECHNIQUE: CT scan performed of the chest without intravenous contrast. Images reviewed with lung, soft tissue and bone windows. Reconstructed coronal and sagittal MPR images reviewed. All images st ored on PACS. All CT scanners at this facility use dose modulation, iterative reconstruction, and/or weight based d osing when appropriate to reduce radiation dose to as low as reasonably achievable (ALARA). [facility]: Dose Right [facility]: CareDose [facility]: Dose Right [facility]: Teradose 4D [facility]: [employer] RADIATION DOSE: CT Rad equipment meets quality standard of care and radiation dose reduction techniq ues were employed. CTDIvol: 3.5 mGy. DLP: 133 mGy-cm. mGy. LIMITATIONS: No technical limitations. FINDINGS: LUNGS AND PLEURA: Chronic interstitial scarring, particularly in the lower lobes and left greater than right. No masses, infiltrates, or pneumothorax. No pleural effusions or pleural calcif ications. HILAR AND MEDIASTINAL STRUCTURES: No identified masses or abnormal nodes. No obvious aneurysm. HEART AND VASCULAR STRUCTURES: No aneurysm. No pericardial effusion. UPPER ABDOMEN: No significant findings. Limited exam. THYROID AND OTHER SOFT TISSUES: No masses. No adenopathy. BONES: Old compression deformity of T11. HARDWARE: Hardware in the thoracolumbar spine. OTHER: No other significant findings. IMPRESSION: CHRONIC PULMONARY SCARRING. CHRONIC CHANGES IN THE SPINE. NO ACUTE FINDING ON NON-CONT RASTED CHEST CT. TECHNICAL DOCUMENTATION: JOB ID: [id number] Quality ID # [id number]: Final reports with documentation of one or more dose reduction techniques (e.g., Au tomated exposure control, adjustment of the mA and/or kV according to patient size, use of iterative reconstruction technique) 2010 [employer]- All Rights Reserved Reading location - IP/workstation name: [email or web address]
== END ==
LOC: RAD 12:43
PROVIDERS: ATTEND Family Medicine Geriatric Medicine
DX: R06.2 Wheezing (principal); R05 Cough
CPT/HCPCS: 71250

== ENCOUNTER → 2018-08-01 | Outpatient (CLI) | payer MEDICARE ==
[~2018-08-01] MED LIST: ALBUTEROL SULFATE 0.083% NEB 2.5 MG/3 ML AMPUL NEB ONE
--- NOTE | 2018-08-05 17:08 | Pulmonary Function Test ---
Pulmonary Function Test Date of Procedure:: 08/05/18 INDICATION:: Cough Referring Provider: Screw Machine Hand: Sanaz Greer [employer] MECH[employer]IC - Report Spirometry: FVC 2.45 L 101% postbronchodilator 2.33 L 96% FEV1 1.47 L 92% postbronchodilator 1.55 L 97% FEV1/FVC % 60 postbronchodilator 66 predicted 80 FEF 25-75% 0.94 L 87% postbronchodilator 1.03 L 95% Lung Volume: Total lung capacity 4.07 L 83% Vital capacity 2.45 L 101% Inspiratory capacity 1.09 L FRC N2 2.98 L 95% ERV 0.67 RV 1.62 L 75% RV/TLC % 40 predicted 44 Diffusion Capactity: Diffusion capacity 6.4 43% DLCO/VA 2.43 75% Impression: Mild obstructive ventilatory defect with insignificant response to bronchodilator therapy.This in and of itself does not preclude a clinical trial of bronchodilator therapy. No restrictive ventilatory defect. No hyperinflation or air trapping. Severe decrease in diffusion capacity.
== END ==
LOC: RT 12:10
PROVIDERS: ATTEND Family Medicine Geriatric Medicine
DX: R06.2 Wheezing (principal); R50.9 Fever, unspecified; Z87.891 Personal history of nicotine dependence
CPT/HCPCS: 94729; 94727; 94060; A9270

== ENCOUNTER → 2019-03-23 | Outpatient (CLI) | payer MEDICARE ==
--- NOTE | 2019-03-23 16:10 | RADIOLOGY REPORT (SQ) ---
EXAM DESCRIPTION: CHEST PA/LATERAL COMPLETED DATE/TIME: 03/23/2019 3:09 pm REASON FOR STUDY: ACUTE BRONCHITIS; COPD COMPARISON: 05/28/2017, 05/31/2017 EXAM PARAMETERS: NUMBER OF VIEWS: two views TECHNIQUE: Digital Frontal and Lateral radiographic views of the chest acquired. RADIATION DOSE: NA LIMITATIONS: none FINDINGS: LUNGS AND PLEURA: Chronic interstitial changes. 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 No effusions. MEDIASTINUM AND HILAR STRUCTURES: No masses or contour abnormalities. HEART AND VASCULAR STRUCTURES: Heart normal size. No evidence for failure. BONES: No acute findings. HARDWARE: None in the chest. OTHER: No other significant finding. IMPRESSION: Chronic interstitial changes. No infiltrate. TECHNICAL DOCUMENTATION: JOB ID: [id number] [email or web address]- All Rights Reserved Reading location - IP/workstation name: [email or web address]
== END ==
LOC: OD 14:50
PROVIDERS: ATTEND Family Medicine Geriatric Medicine
DX: J20.9 Acute bronchitis, unspecified (principal); J44.9 Chronic obstructive pulmonary disease, unspecified
CPT/HCPCS: 71046

== ENCOUNTER → 2019-04-22 | Outpatient (CLI) | payer MEDICARE ==
[2019-04-22 13:06] LABS: ANION GAP 11 (5-19); BLOOD UREA NITROGEN 16 mg/dL (7-20); CALCIUM 9.5 mg/dL (8.4-10.2); CARBON DIOXIDE 27 mmol/L (22-30); CHLORIDE 98 mmol/L (98-107); GLUCOSE 105 mg/dL (75-110); POTASSIUM 4.2 mmol/L (3.6-5.0)
== END ==
LOC: OD 11:47
PROVIDERS: ATTEND Physician Assistant
DX: R06.00 Dyspnea, unspecified (principal)
CPT/HCPCS: 36415; 80048; 85379

== ENCOUNTER → 2019-04-24 | Outpatient (CLI) | payer MEDICARE ==
--- NOTE | 2019-04-24 14:05 | RADIOLOGY REPORT (SQ) ---
EXAM DESCRIPTION: CT CHEST WITHOUT COMPLETED DATE/TIME: 04/24/2019 1:41 pm REASON FOR STUDY: R06.00 DYSPNEA, UNSPECIFIED R06.00 DYSPNEA, UNSPECIFIED COMPARISON: 07/25/2018 TECHNIQUE: CT scan performed of the chest without intravenous contrast. Images reviewed with lung, soft tissue and bone windows. Reconstructed coronal and sagittal MPR images reviewed. All images st ored on PACS. All CT scanners at this facility use dose modulation, iterative reconstruction, and/or weight based d osing when appropriate to reduce radiation dose to as low as reasonably achievable (ALARA). [facility]: Dose Right [facility]: CareDose [facility]: Dose Right [facility]: Teradose 4D [facility]: [employer] RADIATION DOSE: CT Rad equipment meets quality standard of care and radiation dose reduction techniq ues were employed. CTDIvol: 3.0 mGy. DLP: 106 mGy-cm. mGy. LIMITATIONS: No technical limitations. FINDINGS: LUNGS AND PLEURA: Pleural/parenchymal scarring in the right apex. Chronic interstitial ch anges in the lung bases, left more than right. No acute infiltrate or effusion. No mass is seen. HILAR AND MEDIASTINAL STRUCTURES: No identified masses or abnormal nodes. No obvious aneurysm. HEART AND VASCULAR STRUCTURES: No aneurysm. No pericardial effusion. UPPER ABDOMEN: No significant findings. Limited exam. THYROID AND OTHER SOFT TISSUES: No masses. No adenopathy. BONES: No acute finding. Rods are present in the lower thoracic/ lumbar spine. 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 HARDWARE: See above OTHER: No other significant findings. IMPRESSION: Significant chronic lung changes with no acute cardiopulmonary findings. TECHNICAL DOCUMENTATION: JOB ID: [id number] Quality ID # [id number]: Final reports with documentation of one or more dose reduction techniques (e.g., Au tomated exposure control, adjustment of the mA and/or kV according to patient size, use of iterative reconstruction technique) 2010 [employer]- All Rights Reserved Reading location - IP/workstation name: [email or web address]
== END ==
LOC: RAD 13:16
PROVIDERS: ATTEND Physician Assistant
DX: R06.00 Dyspnea, unspecified (principal)
CPT/HCPCS: 71250